=== PATIENT | male | born 1995 | race Hispanic/Latino ===

== ENCOUNTER 2024-06-05 07:23 | Emergency (ER) | payer OTHER ==
--- NOTE | 2024-06-05 07:54 | RAD REPORT ---
EXAM: Chest Single View HISTORY: CHEST PAIN COMPARISON: None. FINDINGS: LUNGS/PLEURA: The lungs are clear. No pleural effusions or pneumothorax. No pulmonary edema. MEDIASTINUM: The mediastinal silhouette is within normal limits. CARDIAC: The cardiac silhouette is within normal limits. UPPER ABDOMEN: No significant abnormality. BONES: No acute abnormality. LINES/TUBES/OTHER: N/A IMPRESSION: No evidence of acute cardiopulmonary disease.
[2024-06-05 08:10] LABS: Absolute Eosinophils 0.1 K/uL (0-0.5); Absolute Monocytes 0.4 K/uL (0.1-1.3); Absolute Neutrophil 4.5 K/uL (1.8-8.0); Basophils % 0.3 % (0-1.3); Eosinophils % 1.1 % (0-4.4); Hematocrit 44.5 % (39.6-49.0); Hemoglobin 15.5 g/dL (13.6-17.9); Lymphocytes % 28.6 % (15.3-44.8); MCH 32.1 pg (27.0-35.0); MCHC 34.8 g/dL (32.0-36.0); MCV 92.2 fL (80-100); MPV 8.4 fL (7.6-11.3); Monocytes % 6.1 % (3.3-12.3); Neutrophils % 63.9 % (41.7-73.7); Nucleated Red Blood Cells % 0.1 % (0-0); Platelets 205 thou/uL (152-406); RBC Red Blood Cell Count 4.83 M/uL (4.33-5.43); Red Cell Distribution Width 12.9 % (12.1-15.2)
[2024-06-05 08:26] LABS: Anion Gap 8.5 mEq/L (5.0-15.0); Magnesium 2.2 mg/dL (1.6-2.4); Potassium 3.5 mEq/L (3.5-5.1); Troponin High Sensitivity 3.3 pg/mL (<58.9)
--- NOTE | 2024-06-05 09:02 | EDPHYS ---
Physician Documentation [facility] Name: César Jones Age: 29 yrs Sex: Male : 1995 Arrival Date: 06/05/2024 Time: 07:23 Bed 20 Private MD: ED Physician Bean Elizalde HPI: 06/05 08:12 This 29 yrs old Male presents to ER via Ambulatory with complaints of Chest Pressure, rn dry mouth. 08:12 The patient or guardian reports chest pain that is located primarily in the substernal rn area. The pain radiates to the right shoulder. Associated signs and symptoms: Pertinent positives: palpitations, Pertinent negatives: abdominal pain, cough, diaphoresis, lower extremity swelling, near syncope, shortness of breath, syncope, vomiting. The chest pain is described as a pressure. Duration: The patient or guardian reports multiple episodes, that are intermittent. Modifying factors: The symptoms are alleviated by nothing. the symptoms are aggravated by nothing. Severity of pain: At its worst the pain was mild in the emergency department the pain has improved. The patient has experienced similar episodes in the past. Patient reports for some time now has been having substernal chest pressure, associated with intermittent palpitations that is worse at night and when trying to fall asleep. Patient reports this keeps him from falling asleep. No family history of heart problems. Patient denies syncope. No shortness of breath. No fever or chills. No cough. No hemoptysis. No abdominal pain. Does have history of acid reflux and has been having increase in heartburn lately. Works night shifts and was having trouble sleeping when he got home today so came to get checked out. Denies current chest pain or palpitations.. Historical: - Allergies: 07:30 No Known Allergies; iw - Home Meds: 07:30 None [Active]; iw - PMHx: 07:30 None; iw - PSHx: 07:30 None; iw - Immunization history:: Adult Immunizations Adult Immunizations not up to date. - Infectious Disease History:: Denies. - Social history:: Smoking status: Smoking status: Patient denies any tobacco usage or history of. - Family history:: not pertinent. - Hospitalizations: : No recent hospitalization is reported. ROS: 08:12 Constitutional: Negative for fever, chills, and weight loss, Neck: Negative for injury, rn pain, and swelling, Cardiovascular: Negative for edema Respiratory: Negative for shortness of breath, cough, wheezing, and pleuritic chest pain, Abdomen/GI: Negative for abdominal pain, nausea, vomiting, diarrhea, and constipation, MS/Extremity: Negative for injury and deformity, Skin: Negative for injury, rash, and discoloration, Neuro: Negative for headache, weakness, numbness, tingling, and seizure, Exam: 08:12 Constitutional: This is a well developed, well nourished patient who is awake, alert, rn and in no acute distress. Ambulatory to room without assistance or difficulty Head/Face: Normocephalic, atraumatic. ENT: Dry mucous membranes Cardiovascular: Regular rate and rhythm. No pulse deficits. Respiratory: No increased work of breathing, no retractions or nasal flaring. Abdomen/GI: Soft, non-tender Skin: Warm, dry MS/ Extremity: Pulses equal, no cyanosis. Neuro: Awake and alert, GCS 15, oriented to person, place, time, and situation. Motor strength 5/5 in all extremities. Sensory grossly intact. Normal gait. Vital Signs: 07:29 BP 142 / 94; Pulse 94; Resp 16; Temp 97.4; Pulse Ox 99% on R/A; Weight 99.79 kg; Height iw 5 ft. 8 in. ; Pain 3/10; 09:19 BP 115 / 77; Pulse 72; Resp 16; Pulse Ox 96% ; bp 07:29 Body Mass Index 33.45 (99.79 kg, 172.72 cm) iw 07:29 Pain Scale: Adult iw MDM: 07:26 Medical Screening Exam initiated rn 09:01 Differential diagnosis: acute pericarditis, anxiety, chest wall pain, costochondritis, rn esophagitis, gastritis, gastroesophageal reflux disease (GERD), peptic ulcer disease, pericarditis, pleurisy, pneumonia, pneumothorax. HEART Score: History: Slightly Suspicious (0), ECG: Normal (0), Age: < or = 45 years (0), Risk Factors: No Risk Factors Known (0), Troponin: < or = 1 x Normal Limit (0), Total Score = 0. Data reviewed: vital signs, nurses notes, lab test result(s), EKG, radiologic studies, plain films, and as a result, I will discharge patient. Independent interpretation of the following test(s) in the Emergency Department EKG: See my EKG interpretation above X-Ray: My interpretation is Chest x-ray images negative for pneumothorax per my interpretation. Counseling: I had a detailed discussion with the patient and/or guardian regarding the historical points, exam findings, and any diagnostic results supporting the discharge/admit diagnosis, lab results, radiology results, the need for outpatient follow up, to return to the emergency department if symptoms worsen or persist or if there are any questions or concerns that arise at home. Special discussion: I discussed with the patient/guardian in detail that at this point there is no indication for admission to the hospital. It is understood, however, that if the symptoms persist or worsen the patient needs to return immediately for re-evaluation. ED course: Workup negative for acute findings. Recommend antacid medication given symptoms and worsening of heartburn. Will DC home with return precautions.. 06/05 07:44 Order name: Basic Metabolic Panel; Complete Time: 08:56 06/05 07:44 Order name: CBC with Diff; Complete Time: 08:56 06/05 07:44 Order name: Magnesium; Complete Time: 08:56 rn 06/05 07:44 Order name: NT PRO-BNP; Complete Time: 08:56 06/05 07:44 Order name: Troponin HS; Complete Time: 08:56 06/05 07:44 Order name: XRAY Chest (1 view); Complete Time: 08:02 rn 06/05 07:44 Order name: EKG; Complete Time: 07:44 rn 06/05 07:44 Order name: Cardiac monitoring; Complete Time: 08:03 rn 06/05 07:44 Order name: EKG - Nurse/Tech; Complete Time: 08: rn 06/05 07:44 Order name: IV Saline Lock; Complete Time: 08: rn 06/05 07:44 Order name: Labs collected and sent; Complete Time: 08:03 rn 06/05 07:44 Order name: O2 Per Protocol; Complete Time: 08: rn 06/05 07:44 Order name: O2 Sat Monitoring; Complete Time: 08:03 rn Administered Medications: No medications were administered Disposition Summary: 06/05/24 09:02 Discharge Ordered Notes: Location: Home rn Problem: new rn Symptoms: have improved rn Condition: Stable rn Diagnosis - Chest pain, unspecified rn Followup: rn - With: Private Physician - When: As needed - Reason: Recheck today's complaints, Re-evaluation by your physician Discharge Instructions: - Discharge Summary Sheet rn - Nonspecific Chest Pain, Adult rn Forms: - Medication Reconciliation Form rn - Antibiotic inspector returned materials - Prescription Opioid Use rn - Patient Portal Instructions rn - Leadership Thank You Letter rn - Work release form bp Signatures: Dispatcher [employer] Yoly Ivan RN RN Bean Fregoso MD MD rn
--- NOTE | 2024-06-05 09:02 | ER ---
Nurse's Notes [facility] Name: César Jones Age: 29 yrs Sex: Male : 1995 Arrival Date: 06/05/2024 Time: 07:23 Bed 20 Private MD: Diagnosis: Chest pain, unspecified Presentation: 06/05 07:29 Chief complaint: Patient states: feels some light pressure in his chest X 2 hours, has iw anxiety at night but not recently. Coronavirus screen: At this time, the client does not indicate any symptoms associated with coronavirus-19. Ebola Screen: No symptoms or risks identified at this time. Initial Sepsis Screen: Does the patient meet any 2 criteria? No. Patient's initial sepsis screen is negative. Does the patient have a suspected source of infection? No. Patient's initial sepsis screen is negative. Risk Assessment: Do you want to hurt yourself or someone else? Patient reports no desire to harm self or others. Onset of symptoms was June 05, 2024. 07:29 Method Of Arrival: Ambulatory iw 07:29 Acuity: ALLISON 3 iw Triage Assessment: 07:30 General: Appears in no apparent distress. Behavior is cooperative, appropriate for age, bp anxious. Pain: Complains of pain in chest. EENT: No deficits noted. Neuro: No deficits noted. Cardiovascular: Reports chest pain. Respiratory: No deficits noted. GI: No signs and/or symptoms were reported involving the gastrointestinal system. : No signs and/or symptoms were reported regarding the genitourinary system. Derm: No deficits noted. Musculoskeletal: No deficits noted. Historical: - Allergies: 07:30 No Known Allergies; iw - Home Meds: 07:30 None [Active]; iw - PMHx: 07:30 None; iw - PSHx: 07:30 None; iw - Immunization history:: Adult Immunizations Adult Immunizations not up to date. - Infectious Disease History:: Denies. - Social history:: Smoking status: Smoking status: Patient denies any tobacco usage or history of. - Family history:: not pertinent. - Hospitalizations: : No recent hospitalization is reported. Screenin:30 [facility] ED Fall Risk Assessment (Adult) History of falling in the last 3 months, bp including since admission No falls in past 3 months (0 pts) Confusion or Disorientation No (0 pts) Intoxicated or Sedated No (0 pts) Impaired Gait No (0 pts) Mobility Assist Device Used No (0 pt) Altered Elimination No (0 pt) Score/Fall Risk Level 0 - 2 = Low Risk Oriented to surroundings. Abuse screen: Denies threats or abuse. Denies injuries from another. Nutritional screening: No deficits noted. Tuberculosis screening: No symptoms or risk factors identified. Assessment: 07:30 General: Appears in no apparent distress. Behavior is calm, cooperative, appropriate bp for age. Pain: Pain does not radiate. Pain began 1 day ago. Vital Signs: 07:29 BP 142 / 94; Pulse 94; Resp 16; Temp 97.4; Pulse Ox 99% on R/A; Weight 99.79 kg; Height iw 5 ft. 8 in. ; Pain 3/10; 09:19 BP 115 / 77; Pulse 72; Resp 16; Pulse Ox 96% ; bp 07:29 Body Mass Index 33.45 (99.79 kg, 172.72 cm) iw 07:29 Pain Scale: Adult iw ED Course: 07:26 Patient arrived in ED. im 07:26 Bena Elizalde MD is Attending Physician. rn 07:30 Triage completed. iw 07:30 Patient has correct armband on for positive identification. Client placed on continuous bp cardiac and pulse oximetry monitoring. NIBP monitoring applied. traffic monitor specialist on. Pulse ox on. NIBP on. 07:31 Arm band placed on. iw 07:32 Karan Parker, RN is Primary Nurse. bp 07:52 XRAY Chest (1 view) In Process Unspecified. EDMS 08:00 Inserted saline lock: 20 gauge in right antecubital area, using aseptic technique. bp Blood collected. Flushed with 10 mL NS. 08:00 Initial lab(s) drawn, by me, sent to lab. EKG done, by ED staff, reviewed by Baen Elizalde MD. 09:19 No provider procedures requiring assistance completed. IV discontinued, intact, bp bleeding controlled, No redness/swelling at site. Pressure dressing applied. Patient maintains SpO2 saturation greater than 95% on room air. Administered Medications: No medications were administered Medication: 07:30 VIS not applicable for this client. bp Outcome: 09:02 Discharge ordered by . rn 09:19 Discharged to home ambulatory, bp 09:19 Condition: stable 09:19 Discharge instructions given to patient, Instructed on discharge instructions, follow up and referral plans. Demonstrated understanding of instructions, follow-up care, 09:20 Patient left the ED. bp Signatures: Dispatcher [employer] Yoly Ivan, Bean Marshall RN, MD MD rn Peltier, Brian, RN RN Nicolasa Savage
[2024-06-05 10:35] VITALS: TEMP 97.4
[2024-06-05 10:36] VITALS: BP 115/77; O2SAT 96
== END 2024-06-05 09:20 | disposition home or self-care (01) ==
LOC: ER 07:23
DX: R07.9 Chest pain, unspecified (principal)
CPT/HCPCS: 36415; 71045; 80048; 83735; 83880; 84484; 85025; 93005